=== PATIENT | male | born 1965 | race Two or more races ===

== ENCOUNTER 2017-04-06 18:43 | Inpatient (IN) | payer SELFPAY ==
--- NOTE | 2017-04-06 20:46 | PCM.HP ---
H&P History of Present Illness - General Date of Service: 04/06/17 Admit Problem/Dx: Admission Diagnosis/Problem Admission Diagnosis/Problem Anemia Source of Information: Patient, Family History Limitations: Reports: No Limitations - History of Present Illness Initial Comments - Free Text/Narative: He has had pain in the abd for 3 months and getting worse recently. Pain is 10 /10 sharp shooting and dull in character. He has been unable to hold down solid food just milk and soup. He has had chills and low grade fevers. He has had respiratory distress and weakness for 2-3 weeks. Onset of Symptoms: Reports: Gradual Location: Reports: Abdomen Worsens with: Reports: Movement Abdomen Pain Score (Numeric/FACES): 6 - Related Data Allergies/Adverse Reactions: Allergies Allergy/AdvReac Type Severity Reaction Status Date / Time No Known Allergies Allergy Verified 04/06/17 19:09 Home Medications: Home Meds NK [No Known Home Meds] 04/06/17 [History] Past Medical History - Past Surgical History Other HEENT Surgeries/Procedures: PLATE IN HEAD R/T GRENADE FROM THE WAR GI Surgical History: Reports: Hernia, Abdominal Other Musculoskeletal Surgeries/Procedures:: METAL PLATE IN HEAD R/T TO A GRENADE IN THE WAR, L SHOULDER DISLOCATION WITH SURGICAL REPAIR Social & Family History - Tobacco Use Smoking Status *Q: Unknown Ever Smoked H&P Review of Systems - Review of Systems: Review Of Systems: See Below General: Reports: Fever, Chills, Weakness HEENT: Reports: No Symptoms Pulmonary: Reports: Shortness of Breath Cardiovascular: Reports: Dyspnea on Exertion Gastrointestinal: Reports: Abdominal Pain Genitourinary: Reports: Frequency Musculoskeletal: Reports: No Symptoms Skin: Reports: No Symptoms Psychiatric: Reports: No Symptoms Neurological: Reports: No Symptoms Exam - Exam Exam: See Below - Vital Signs Vital Signs: Last Vital Signs Temp 99.5 F 04/06/17 19:47 Pulse 87 04/06/17 19:47 Resp 15 04/06/17 19:47 BP 148/76 H 04/06/17 19:47 Pulse Ox 98 04/06/17 19:47 Weight: 250 lb - Exam General: Alert, Oriented, 4 HEENT: PERRLA, Hearing Intact, Mucosa Moist & [place], Nares Patent, Normal Nasal Septum, Posterior Pharynx Clear, Conjunctiva Clear, EOMI, EACs Clear, TMs Clear Neck: Supple Lungs: Clear to Auscultation, Normal Respiratory Effort Cardiovascular: Regular Rate, Regular Rhythm GI/Abdominal Exam: Other (Hypoactive bowel sounds.) Back Exam: Normal Inspection, Full Range of Motion, NT Extremities: Pedal Edema Peripheral Pulses: 1+: Radial (L), Radial (R) Neurological: Cranial Nerves Intact, Reflexes Equal Bilateral Neuro Extensive - Mental Status: Alert, Oriented x3, Normal Mood/Affect, Normal Cognition Neuro Extensive - Motor, Sensory, Reflexes: CN II-XII Intact, Normal Gait, Normal Reflexes Psychiatric: Alert - Patient Data Lab Results Last 24 hrs: Laboratory Results - last 24 hr 04/06/17 04/06/17 04/06/17 Range/Units 19:15 19:15 19:26 WBC 8.4 (4.5-11.0) K/uL RBC 2.00 L (4.30-5.90) M/uL Hgb 4.6 L* (12.0-15.0) g/dL Hct 17.3 L (40.0-54.0) % MCV 87 (80-98) fL MCH 23 L (27-31) pg MCHC 27 L (32-36) % Plt Count 81 L (150-400) K/uL Neut % (Auto) 75 H (36-66) % Lymph % (Auto) 11 L (24-44) % [place] % (Auto) 11 H (2-6) % Eos % (Auto) 3 (2-4) % Baso % (Auto) 1 (0-1) % Sodium 138 L (140-148) mmol/L Potassium 3.8 (3.6-5.2) mmol/L Chloride 110 H (100-108) mmol/L Carbon Dioxide 22 (21-32) mmol/L Anion Gap 9.8 (5.0-14.0) mmol/L BUN 10 (7-18) mg/dL Creatinine 0.8 (0.8-1.3) mg/dL Est Cr Clr Drug Dosing 93.96 mL/min Estimated GFR (MDRD) > 60 (>60) Glucose 104 (74-106) mg/dL Calcium 7.2 L (8.5-10.1) mg/dL Iron (65-175) ug/dL TIBC (250-450) ug/dl % Saturation (20-55) % Total Bilirubin 2.2 H (0.2-1.0) mg/dL AST 55 H (15-37) U/L ALT 26 (12-78) U/L Alkaline Phosphatase 128 H (46-116) U/L Total Protein 5.7 L (6.4-8.2) g/dL Albumin 1.7 L (3.4-5.0) g/dL Globulin 4.0 H (2.3-3.5) g/dL Albumin/Globulin Ratio 0.4 L (1.2-2.2) Urine Color Urine Appearance Urine pH (4.5-8.0) Ur Specific [place] (1.008-1.030) Urine Protein (NEGATIVE) mg/dL Urine Glucose (UA) (NEGATIVE) mg/dL Urine Ketones (NEGATIVE) mg/dL Urine Occult Blood (NEGATIVE) Urine Nitrite (NEGAITVE) Urine Bilirubin (NEGATIVE) Urine Urobilinogen (NORMAL) mg/dL Ur Leukocyte Esterase (NEGATIVE) Urine RBC (0-5) Urine WBC (0-5) Ur Epithelial Cells Amorphous Sediment Urine Bacteria Urine Mucus Blood Type O POSITIVE Gel Antibody Screen Negative Crossmatch See Detail 04/06/17 04/06/17 Range/Units 19:46 20:09 WBC (4.5-11.0) K/uL RBC (4.30-5.90) M/uL Hgb (12.0-15.0) g/dL Hct (40.0-54.0) % MCV (80-98) fL MCH (27-31) pg MCHC (32-36) % Plt Count (150-400) K/uL Neut % (Auto) (36-66) % Lymph % (Auto) (24-44) % [place] % (Auto) (2-6) % Eos % (Auto) (2-4) % Baso % (Auto) (0-1) % Sodium (140-148) mmol/L Potassium (3.6-5.2) mmol/L Chloride (100-108) mmol/L Carbon Dioxide (21-32) mmol/L Anion Gap (5.0-14.0) mmol/L BUN (7-18) mg/dL Creatinine (0.8-1.3) mg/dL Est Cr Clr Drug Dosing mL/min Estimated GFR (MDRD) (>60) Glucose (74-106) mg/dL Calcium (8.5-10.1) mg/dL Iron 11 L (65-175) ug/dL TIBC 220 L (250-450) ug/dl % Saturation 5 L (20-55) % Total Bilirubin (0.2-1.0) mg/dL AST (15-37) U/L ALT (12-78) U/L Alkaline Phosphatase (46-116) U/L Total Protein (6.4-8.2) g/dL Albumin (3.4-5.0) g/dL Globulin (2.3-3.5) g/dL Albumin/Globulin Ratio (1.2-2.2) Urine Color Yellow Urine Appearance Clear Urine pH 6.0 (4.5-8.0) Ur Specific [place] 1.015 (1.008-1.030) Urine Protein Negative (NEGATIVE) mg/dL Urine Glucose (UA) Normal (NEGATIVE) mg/dL Urine Ketones Negative (NEGATIVE) mg/dL Urine Occult Blood Negative (NEGATIVE) Urine Nitrite Negative (NEGAITVE) Urine Bilirubin Small (NEGATIVE) Urine Urobilinogen 4 (NORMAL) mg/dL Ur Leukocyte Esterase Negative (NEGATIVE) Urine RBC 0-5 (0-5) Urine WBC 0-5 (0-5) Ur Epithelial Cells Rare Amorphous Sediment Not seen Urine Bacteria Rare Urine Mucus Not seen Blood Type Gel Antibody Screen Crossmatch Result Diagrams: 04/06/17 20:35 04/06/17 19:15 *Q Meaningful Use (ADM) - VTE *Q VTE Criteria *Q: - Stroke *Q Stroke Criteria *Q: - AMI *Q AMI Criteria *Q: Problem List Initiated/Reviewed/Updated: Yes Orders Last 24hrs: Active Orders 24 hr Category Date Time Status Patient Status [ADT] Routine ADT 04/06/17 20:32 Ordered Ambulate [RC] QID Care 04/06/17 20:32 Ordered Bedrest Bathroom Privileges [RC] ASDIRECTED Care 04/06/17 20:32 Ordered Height and Weight [RC] UPON Care 04/06/17 20:32 Ordered Hemoccult [Fecal Occult Blood Collection] [RC] Care 04/06/17 20:07 Active ASDIRECTED Intake and Output [RC] QSHIFT Care 04/06/17 20:34 Ordered May Shower [RC] ASDIRECTED Care 04/06/17 20:32 Ordered Oxygen Therapy [RC] PRN Care 04/06/17 20:32 Ordered Up to Chair [RC] QID Care 04/06/17 20:32 Ordered VTE/DVT Education [RC] Per Unit Routine Care 04/06/17 20:32 Ordered Vital Signs [RC] Q4H Care 04/06/17 20:32 Ordered Full Liquid Diet [DIET] Diet 04/07/17 Breakfast Ordered Abdomen 2V AP Flat Upright [CR] Stat Exams 04/06/17 19:02 Ordered CXR [Chest 2V] [CR] Routine Exams 04/06/17 19:03 Ordered CBC WITH AUTO DIFF [HEME] DAILY Lab 04/06/17 20:45 Ordered FOLIC ACID [CHEM] Stat Lab 04/06/17 20:11 Ordered PATIENT RETYPE [BBK] Stat Lab 04/06/17 19:26 Results RED BLOOD CELLS LP [BBK] Stat Lab 04/06/17 19:26 Results RETICULOCYTE COUNT [HEME] Stat Lab 04/06/17 20:08 Ordered TYPE AND SCREEN [BBK] Stat Lab 04/06/17 19:26 Results VITAMIN B12 [CHEM] Stat Lab 04/06/17 20:10 Ordered Transfuse Red Blood Cells [COMM] Stat Oth 04/06/17 19:26 Ordered Resuscitation Status Routine Resus Stat 04/06/17 20:32 Ordered Assessment/Plan Comment:: Assessment/Plan: #1. Abdominal umbilical hernia. Flat plate of abd and upright reveals no acute pathology. He will need the hernia repaired. Will consult Dr. Hector Norowod when stable for surgery. #2 Anemia: Hb 4.7 will give 2 units of pac cells and check Hb in the morning. Have T & C for 3 units. #3. Obesity: He has gained 60 pound in 2-3 months. Evaluation in progress.
[2017-04-06] MEDS ORDERED: Meperidine 300 MG/30 ML PCA Vial IV PRN (23:10)
[2017-04-06] MEDS ORDERED: Naloxone 0.4 MG/ML SDV IVPUSH PRN (23:19)
[2017-04-06] MEDS: Ondansetron 4 MG/2 ML SDV IVPUSH PRN (23:37)
[2017-04-07] MEDS ORDERED: Sodium Chloride 0.9% 100 ML IV SCH (02:00)
[2017-04-07] MEDS ORDERED: Iopamidol 755 Mg/ML 100 ML Bottle IV SCH (02:00)
--- NOTE | 2017-04-07 03:15 | PCM.PN ---
- General Info Date of Service: 04/07/17 Admission Dx/Problem (Free Text): I was called as he was getting increased pain and had just completed a unit of blood transfusion. His pain became worse and was transferred to the ICU. He has gained weight recently and has had abd. bloating with pain now worse. 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 O2 levels are low and on 4 L of oxygen with 96% pulse ox. Functional Status: Reports: Pain Controlled - Review of Systems General: Reports: Fever, Weakness Pulmonary: Reports: Shortness of Breath Gastrointestinal: Reports: Abdominal Pain, Nausea, Vomiting Genitourinary: Reports: No Symptoms Skin: Reports: No Symptoms Neurological: Reports: No Symptoms - Patient Data Vitals - Most Recent: Last Vital Signs Temp 100.5 F 04/07/17 01:15 Pulse 115 H 04/07/17 00:20 Resp 34 H 04/07/17 02:42 BP 110/56 L 04/07/17 02:25 Pulse Ox 93 L 04/07/17 02:42 Weight - Most Recent: 259 lb I&O - Last 24 Hours: Intake & Output 04/06/17 04/06/17 04/07/17 14:59 22:59 06:59 Intake Total 200 Output Total 300 Balance 200 -300 Lab Results Last 24 Hours: Laboratory Results - last 24 hr 04/06/17 04/06/17 04/07/17 Range/Units 20:35 21:25 01:33 WBC 9.2 (4.5-11.0) K/uL RBC 2.02 L (4.30-5.90) M/uL Hgb 5.0 L* (12.0-15.0) g/dL Hct 17.3 L (40.0-54.0) % MCV 86 (80-98) fL MCH 25 L (27-31) pg MCHC 29 L (32-36) % Plt Count 94 L (150-400) K/uL Neut % (Auto) 74 H (36-66) % Lymph % (Auto) 12 L (24-44) % [place] % (Auto) 11 H (2-6) % Eos % (Auto) 3 (2-4) % Baso % (Auto) 0 (0-1) % Puncture Site Rt brachial ABG pH 7.440 (7.350-7.450) ABG pCO2 25.7 L (35.0-42.0) mmHg ABG pO2 67.9 L (75.0-100.0) mmHg ABG HCO3 17.2 L (22.0-26.0) mmol/L ABG Total CO2 16.7 L (23.0-27.0) mmol/L ABG O2 Saturation 93.8 L (95.0-98.0) % ABG O2 Content 7.8 L (15.0-23.0) %vol ABG Base Excess -6.1 mm/L ABG Hemoglobin 6.0 L (13.5-18.0) g/dL ABG Oxyhemoglobin 91.8 % ABG Carboxyhemoglobin 1.3 (0.0-1.6) % ABG Methemoglobin 0.8 % Luciano Test Passed O2 Delivery Device Nasal cannula TSH, Ultra Sensitive 3.406 (0.358-3.740) uIU/mL Brennen Results Last 24 Hours: Microbiology 04/06/17 23:32 Occult Blood - Final Stool / Feces - Stool, Liquid Med Orders - Current: Current Medications Sodium Chloride (Normal Saline) 100 mls @ 4 mls/sec IV ASDIRECTED RONALD Last Admin: 04/07/17 02:24 Dose: 4 mls/sec Influenza Virus Vaccine (Fluzone Quad [id number]) 60 mcg IM .ONCE ONE Stop: 04/07/17 10:01 Iopamidol (Isovue-370 (76%)) 100 ml IV . DIRECTED [facility] Last Admin: 04/07/17 02:23 Dose: 100 ml Meperidine HCl (Demerol Environmental Health Nurse 300 Mg In 30 Ml) 300 mg IV ASDIRECTED PRN; Protocol PRN Reason: Pain Last Admin: 04/06/17 23:40 Dose: 300 mg Naloxone HCl (Narcan) 0.4 mg IVPUSH Q2M PRN PRN Reason: Respiratory Distress Ondansetron HCl (Zofran Odt) 4 mg PO Q4H PRN PRN Reason: Nausea/Vomiting Ondansetron HCl (Zofran) 4 mg IVPUSH Q4H PRN PRN Reason: Nausea/Vomiting Last Admin: 04/06/17 23:37 Dose: 4 mg Discontinued Medications Influenza Virus Vaccine (Pharmacy To Dose - Influenza Vaccine) 1 each IM ONETIME ONE Stop: 04/06/17 22:07 - Exam General: Alert, Oriented Neck: Supple Lungs: Clear to Auscultation, Normal Respiratory Effort Cardiovascular: Regular Rate, Regular Rhythm GI/Abdominal Exam: Distended, Guarding, Tender, Abnormal Bowel Sounds Extremities: Pedal Edema Peripheral Pulses: 1+: Radial (L), Radial (R) - Problem List Review Problem List Initiated/Reviewed/Updated: Yes - My Orders Last 24 Hours: My Active Orders 04/06/17 21:25 CEA [REF] Routine 04/06/17 23:10 Meperidine [Demerol [employer]OWPLACE MANAGER 300 MG in 30 ML] 300 mg IV ASDIRECTED PRN 04/06/17 23:14 Ondansetron [Zofran ODT] 4 mg PO Q4H PRN Ondansetron [Zofran] 4 mg IVPUSH Q4H PRN 04/06/17 23:19 Communication Order [RC] STAT Notify Provider [RC] PRN SHOWPLACE MANAGER Record [RC] Q12H Pulse Oximetry [RC] CONTINUOUS Naloxone [Narcan] 0.4 mg IVPUSH Q2M PRN Medication Discontinuation Instructions [OM.PC] Stat 04/07/17 00:25 Transfer Patient (Change bed) [ADT] Routine 04/07/17 00:37 CULTURE URINE [RM] Routine UA W/MICROSCOPIC [URIN] Routine Blood Culture x2 Reflex Set [OM.PC] Urgent 04/07/17 00:50 CULTURE BLOOD [BC] Urgent 04/07/17 01:00 CULTURE BLOOD [BC] Urgent 04/07/17 01:30 Ang Chest w wo Cont [MR] Routine 04/07/17 01:32 Abdomen Pelvis w Cont [CT] Stat 04/07/17 01:35 TRANSFUSION REACTION [BBK] Routine 04/07/17 01:40 Ang Chest [CT] Stat 04/07/17 02:00 Iopamidol [Isovue-370 (76%)] 100 ml IV . DIRECTED Sodium Chloride 0.9% [Normal Saline] 100 ml IV ASDIRECTED 04/07/17 05:00 CBC WITH AUTO DIFF [HEME] Routine 04/07/17 10:00 FLU Vacc [id number] [id number] UP/PF [Fluzone Quad [id number]] 60 mcg IM .ONCE ONE - Plan Plan:: Assessment/Plan: #1. Cirrhosis of the liver. Flat plate of abd and upright reveals no acute pathology this was read by the radiologist. Ct of the abd showed liver cirrhosis. Now he states he has been drinking heavy last drink 3 weeks ago. Initially he said he did not drink. Liver enzymes show evidence of liver dysfunction with AST>ALT >2:1 with slight elevation of Alk P Tase. Prognosis is not good. The abd hernia is fluid pushing the navel and is not a concern. Would consider doing a percentesis. #2 Anemia: Hb 4.7 will give 2 units of pac cells and check Hb in the morning. Have T & C for 3 units. #3. Hypoxemia: CT of the lung showed no evidence of a PE. #4. Obesity: He has gained 60 pound in 2-3 months. 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
[2017-04-07] MEDS ORDERED: Furosemide 20 MG/2 ML VIAL IVPUSH ONE (04:18)
[2017-04-07] MEDS ORDERED: FLU Vacc QS 2017-18 (36mos UP)/PF 60 MCG/0.5 ML Syringe IM ONE (10:00)
[2017-04-07] MEDS: Levofloxacin/Dextrose 5%-Water 500 MG in Premix Bag 1 BAG IV SCH (10:41)
[2017-04-07] MEDS: Meperidine 300 MG/30 ML PCA Vial IV PRN (14:36)
--- NOTE | 2017-04-07 15:01 | PCM.OPNOTE ---
- General Post-Op/Procedure Note Date of Surgery/Procedure: 04/07/17 Operative Procedure(s): abd. pericentesis Pre Op Diagnosis: Liver failure Post-Op Diagnosis: 4.5 liters removed Primary Surgeon: Harry Man Sr Condition: Fair Free Text/Narrative:: Intake & Output 04/06/17 04/07/17 04/07/17 22:59 06:59 14:59 Intake Total 200 390 0 Output Total 300 Balance 200 90 0 Standard sterile technique used and used a thorentesis kit. removed 4.5 liters of yellow fluid. difficult to remove had to use suction then used a syringe which came very slow. Spent 2 hours in removing the fluid. Fluid sent for cytology and cell count.
--- NOTE | 2017-04-07 15:06 | PCM.PN ---
- General Info Date of Service: 04/07/17 Functional Status: Reports: Pain Controlled - Review of Systems General: Reports: Weakness, Fatigue HEENT: Reports: No Symptoms Pulmonary: Reports: Shortness of Breath, Other (on 4 liters of O2.) Gastrointestinal: Reports: Abdominal Pain Genitourinary: Reports: No Symptoms Musculoskeletal: Reports: No Symptoms Skin: Reports: No Symptoms Neurological: Reports: No Symptoms Psychiatric: Reports: No Symptoms - Patient Data Vitals - Most Recent: Last Vital Signs Temp 98.0 F 04/07/17 13:00 Pulse 115 H 04/07/17 00:20 Resp 25 H 04/07/17 13:00 BP 104/77 04/07/17 13:00 Pulse Ox 90 L 04/07/17 13:00 Weight - Most Recent: 259 lb I&O - Last 24 Hours: Intake & Output 04/07/17 04/07/17 04/07/17 06:59 14:59 22:59 Intake Total 390 0 Output Total 300 Balance 90 0 Lab Results Last 24 Hours: Laboratory Results - last 24 hr 04/06/17 04/06/17 04/07/17 Range/Units 20:35 21:25 01:33 WBC 9.2 (4.5-11.0) K/uL RBC 2.02 L (4.30-5.90) M/uL Hgb 5.0 L* (12.0-15.0) g/dL Hct 17.3 L (40.0-54.0) % MCV 86 (80-98) fL MCH 25 L (27-31) pg MCHC 29 L (32-36) % Plt Count 94 L (150-400) K/uL Neut % (Auto) 74 H (36-66) % Lymph % (Auto) 12 L (24-44) % [place] % (Auto) 11 H (2-6) % Eos % (Auto) 3 (2-4) % Baso % (Auto) 0 (0-1) % PT (9.5-12.0) sec INR (0.80-1.20) Puncture Site Rt brachial ABG pH 7.440 (7.350-7.450) ABG pCO2 25.7 L (35.0-42.0) mmHg ABG pO2 67.9 L (75.0-100.0) mmHg ABG HCO3 17.2 L (22.0-26.0) mmol/L ABG Total CO2 16.7 L (23.0-27.0) mmol/L ABG O2 Saturation 93.8 L (95.0-98.0) % ABG O2 Content 7.8 L (15.0-23.0) %vol ABG Base Excess -6.1 mm/L ABG Hemoglobin 6.0 L (13.5-18.0) g/dL ABG Oxyhemoglobin 91.8 % ABG Carboxyhemoglobin 1.3 (0.0-1.6) % ABG Methemoglobin 0.8 % Luciano Test Passed O2 Delivery Device Nasal cannula Ammonia (11-32) mmol/L Creatine Kinase (39-308) U/L CK-MB (CK-2) (0-3.6) mg/mL Troponin I (0.000-0.056) ng/mL Lipase (73-393) U/L TSH, Ultra Sensitive 3.406 (0.358-3.740) uIU/mL Urine Color Urine Appearance Urine pH (4.5-8.0) Ur Specific [place] (1.008-1.030) Urine Protein (NEGATIVE) mg/dL Urine Glucose (UA) (NEGATIVE) mg/dL Urine Ketones (NEGATIVE) mg/dL Urine Occult Blood (NEGATIVE) Urine Nitrite (NEGAITVE) Urine Bilirubin (NEGATIVE) Urine Urobilinogen (NORMAL) mg/dL Ur Leukocyte Esterase (NEGATIVE) Urine RBC (0-5) Urine WBC (0-5) Ur Epithelial Cells Amorphous Sediment Urine Bacteria Urine Mucus Urine Other Tx Rx Implicated Unit 1 Unit 1 Component Urine Blood Reaction Clerical Check Pre-Trans Blood Type Pre-Trans Vis Hemolysis Pre-Trans Icterus Pre-Trans EN IgG Post-Trans Blood Type Post-Tx Visible Hemolys Post-Trans Icterus Post-Trans EN IgG 04/07/17 04/07/17 04/07/17 Range/Units 01:35 04:38 05:00 WBC 14.0 H (4.5-11.0) K/uL RBC 3.00 L (4.30-5.90) M/uL Hgb 7.8 L D (12.0-15.0) g/dL Hct 25.9 L (40.0-54.0) % MCV 86 (80-98) fL MCH 26 L (27-31) pg MCHC 30 L (32-36) % Plt Count 125 L (150-400) K/uL Neut % (Auto) 95 H (36-66) % Lymph % (Auto) 3 L (24-44) % [place] % (Auto) 2 (2-6) % Eos % (Auto) 0 L (2-4) % Baso % (Auto) 0 (0-1) % PT (9.5-12.0) sec INR (0.80-1.20) Puncture Site ABG pH (7.350-7.450) ABG pCO2 (35.0-42.0) mmHg ABG pO2 (75.0-100.0) mmHg ABG HCO3 (22.0-26.0) mmol/L ABG Total CO2 (23.0-27.0) mmol/L ABG O2 Saturation (95.0-98.0) % ABG O2 Content (15.0-23.0) %vol ABG Base Excess mm/L ABG Hemoglobin (13.5-18.0) g/dL ABG Oxyhemoglobin % ABG Carboxyhemoglobin (0.0-1.6) % ABG Methemoglobin % Luciano Test O2 Delivery Device Ammonia (11-32) mmol/L Creatine Kinase (39-308) U/L CK-MB (CK-2) (0-3.6) mg/mL Troponin I (0.000-0.056) ng/mL Lipase (73-393) U/L TSH, Ultra Sensitive (0.358-3.740) uIU/mL Urine Color [place] Urine Appearance Cloudy Urine pH 5.0 (4.5-8.0) Ur Specific [place] 1.010 (1.008-1.030) Urine Protein 30 H (NEGATIVE) mg/dL Urine Glucose (UA) Normal (NEGATIVE) mg/dL Urine Ketones Negative (NEGATIVE) mg/dL Urine Occult Blood Trace (NEGATIVE) Urine Nitrite Positive H (NEGAITVE) Urine Bilirubin Small (NEGATIVE) Urine Urobilinogen 4 (NORMAL) mg/dL Ur Leukocyte Esterase Small (NEGATIVE) Urine RBC 0-5 (0-5) Urine WBC 10-20 H (0-5) Ur Epithelial Cells Many Amorphous Sediment Moderate Urine Bacteria Moderate Urine Mucus Few Urine Other See note Tx Rx Implicated Unit 1 [id number] Unit 1 Component O-pos Urine Blood Trace Reaction Clerical Check Acceptable Pre-Trans Blood Type O positive Pre-Trans Vis Hemolysis Negative Pre-Trans Icterus 2+ Pre-Trans EN IgG Negative Post-Trans Blood Type O positive Post-Tx Visible Hemolys Negative Post-Trans Icterus 2+ Post-Trans EN IgG Negative 04/07/17 04/07/17 04/07/17 Range/Units 07:30 09:48 09:48 WBC (4.5-11.0) K/uL RBC (4.30-5.90) M/uL Hgb (12.0-15.0) g/dL Hct (40.0-54.0) % MCV (80-98) fL MCH (27-31) pg MCHC (32-36) % Plt Count (150-400) K/uL Neut % (Auto) (36-66) % Lymph % (Auto) (24-44) % [place] % (Auto) (2-6) % Eos % (Auto) (2-4) % Baso % (Auto) (0-1) % PT 14.7 H (9.5-12.0) sec INR 1.36 H (0.80-1.20) Puncture Site ABG pH (7.350-7.450) ABG pCO2 (35.0-42.0) mmHg ABG pO2 (75.0-100.0) mmHg ABG HCO3 (22.0-26.0) mmol/L ABG Total CO2 (23.0-27.0) mmol/L ABG O2 Saturation (95.0-98.0) % ABG O2 Content (15.0-23.0) %vol ABG Base Excess mm/L ABG Hemoglobin (13.5-18.0) g/dL ABG Oxyhemoglobin % ABG Carboxyhemoglobin (0.0-1.6) % ABG Methemoglobin % Luciano Test O2 Delivery Device Ammonia 48 H (11-32) mmol/L Creatine Kinase 135 (39-308) U/L CK-MB (CK-2) 3.5 (0-3.6) mg/mL Troponin I 0.051 (0.000-0.056) ng/mL Lipase (73-393) U/L TSH, Ultra Sensitive (0.358-3.740) uIU/mL Urine Color Urine Appearance Urine pH (4.5-8.0) Ur Specific [place] (1.008-1.030) Urine Protein (NEGATIVE) mg/dL Urine Glucose (UA) (NEGATIVE) mg/dL Urine Ketones (NEGATIVE) mg/dL Urine Occult Blood (NEGATIVE) Urine Nitrite (NEGAITVE) Urine Bilirubin (NEGATIVE) Urine Urobilinogen (NORMAL) mg/dL Ur Leukocyte Esterase (NEGATIVE) Urine RBC (0-5) Urine WBC (0-5) Ur Epithelial Cells Amorphous Sediment Urine Bacteria Urine Mucus Urine Other Tx Rx Implicated Unit 1 Unit 1 Component Urine Blood Reaction Clerical Check Pre-Trans Blood Type Pre-Trans Vis Hemolysis Pre-Trans Icterus Pre-Trans EN IgG Post-Trans Blood Type Post-Tx Visible Hemolys Post-Trans Icterus Post-Trans EN IgG 04/07/17 Range/Units 12:36 WBC (4.5-11.0) K/uL RBC (4.30-5.90) M/uL Hgb (12.0-15.0) g/dL Hct (40.0-54.0) % MCV (80-98) fL MCH (27-31) pg MCHC (32-36) % Plt Count (150-400) K/uL Neut % (Auto) (36-66) % Lymph % (Auto) (24-44) % [place] % (Auto) (2-6) % Eos % (Auto) (2-4) % Baso % (Auto) (0-1) % PT (9.5-12.0) sec INR (0.80-1.20) Puncture Site ABG pH (7.350-7.450) ABG pCO2 (35.0-42.0) mmHg ABG pO2 (75.0-100.0) mmHg ABG HCO3 (22.0-26.0) mmol/L ABG Total CO2 (23.0-27.0) mmol/L ABG O2 Saturation (95.0-98.0) % ABG O2 Content (15.0-23.0) %vol ABG Base Excess mm/L ABG Hemoglobin (13.5-18.0) g/dL ABG Oxyhemoglobin % ABG Carboxyhemoglobin (0.0-1.6) % ABG Methemoglobin % Luciano Test O2 Delivery Device Ammonia (11-32) mmol/L Creatine Kinase (39-308) U/L CK-MB (CK-2) (0-3.6) mg/mL Troponin I (0.000-0.056) ng/mL Lipase 315 (73-393) U/L TSH, Ultra Sensitive (0.358-3.740) uIU/mL Urine Color Urine Appearance Urine pH (4.5-8.0) Ur Specific [place] (1.008-1.030) Urine Protein (NEGATIVE) mg/dL Urine Glucose (UA) (NEGATIVE) mg/dL Urine Ketones (NEGATIVE) mg/dL Urine Occult Blood (NEGATIVE) Urine Nitrite (NEGAITVE) Urine Bilirubin (NEGATIVE) Urine Urobilinogen (NORMAL) mg/dL Ur Leukocyte Esterase (NEGATIVE) Urine RBC (0-5) Urine WBC (0-5) Ur Epithelial Cells Amorphous Sediment Urine Bacteria Urine Mucus Urine Other Tx Rx Implicated Unit 1 Unit 1 Component Urine Blood Reaction Clerical Check Pre-Trans Blood Type Pre-Trans Vis Hemolysis Pre-Trans Icterus Pre-Trans EN IgG Post-Trans Blood Type Post-Tx Visible Hemolys Post-Trans Icterus Post-Trans EN IgG Brennen Results Last 24 Hours: Microbiology 04/06/17 23:32 Occult Blood - Final Stool / Feces - Stool, Liquid Med Orders - Current: Current Medications Levofloxacin/Dextrose 500 mg/ (Premix) 100 mls @ 100 mls/hr IV Q24H [facility] Last Admin: 04/07/17 10:41 Dose: 100 mls/hr Albumin Human (Albumin 25%) 25 gm in 100 mls @ 25 mls/hr IV Q24H [facility] Stop: 04/09/17 17:59 Last Admin: 04/07/17 14:36 Dose: 25 mls/hr Albumin Human (Albumin 25%) 25 gm in 100 mls @ 25 mls/hr IV Q24H [facility] Stop: 04/09/17 21:59 Influenza Virus Vaccine (Fluzone Quad 9825-0892) 60 mcg IM .ONCE ONE Stop: 04/09/17 10:01 Meperidine HCl (Demerol It Applications Manager 300 Mg In 30 Ml) 0 mg IV ASDIRECTED PRN; Protocol PRN Reason: Pain Last Admin: 04/07/17 14:36 Dose: 300 mg Naloxone HCl (Narcan) 0.4 mg IVPUSH Q2M PRN PRN Reason: Respiratory Distress Ondansetron HCl (Zofran Odt) 4 mg PO Q4H PRN PRN Reason: Nausea/Vomiting Ondansetron HCl (Zofran) 4 mg IVPUSH Q4H PRN PRN Reason: Nausea/Vomiting Last Admin: 04/06/17 23:37 Dose: 4 mg Discontinued Medications Furosemide (Lasix) 20 mg IVPUSH ONETIME ONE Stop: 04/07/17 04:19 Last Admin: 04/07/17 04:30 Dose: 20 mg Sodium Chloride (Normal Saline) 100 mls @ 4 mls/sec IV ASDIRECTED [facility] Last Admin: 04/07/17 02:24 Dose: 4 mls/sec Influenza Virus Vaccine (Pharmacy To Dose - Influenza Vaccine) 1 each IM ONETIME ONE Stop: 04/06/17 22:07 Iopamidol (Isovue-370 (76%)) 100 ml IV . DIRECTED [facility] Last Admin: 04/07/17 02:23 Dose: 100 ml Meperidine HCl (Demerol It Applications Manager 300 Mg In 30 Ml) 300 mg IV ASDIRECTED PRN; Protocol PRN Reason: Pain Last Admin: 04/06/17 23:40 Dose: 300 mg - Exam General: Alert, Oriented HEENT: Pupils Equal Neck: Supple Lungs: Clear to Auscultation, Normal Respiratory Effort Cardiovascular: Regular Rate, Regular Rhythm GI/Abdominal Exam: Distended, Tender Extremities: Pedal Edema Peripheral Pulses: 1+: Radial (L), Radial (R) Skin: Warm, Dry, Intact - Problem List Review Problem List Initiated/Reviewed/Updated: Yes - My Orders Last 24 Hours: My Active Orders 04/06/17 21:25 CEA [REF] Routine 04/06/17 23:14 Ondansetron [Zofran ODT] 4 mg PO Q4H PRN Ondansetron [Zofran] 4 mg IVPUSH Q4H PRN 04/06/17 23:19 Communication Order [RC] STAT Notify Provider [RC] PRN WOOD CRAFTER Record [RC] Q12H Pulse Oximetry [RC] CONTINUOUS Naloxone [Narcan] 0.4 mg IVPUSH Q2M PRN Medication Discontinuation Instructions [OM.PC] Stat 04/07/17 00:25 Transfer Patient (Change bed) [ADT] Routine 04/07/17 00:37 Blood Culture x2 Reflex Set [OM.PC] Urgent 04/07/17 00:50 CULTURE BLOOD [BC] Urgent 04/07/17 01:00 CULTURE BLOOD [BC] Urgent 04/07/17 01:30 Ang Chest w wo Cont [MR] Routine 04/07/17 01:32 Abdomen Pelvis w Cont [CT] Stat 04/07/17 01:35 TRANSFUSION REACTION [BBK] Routine 04/07/17 01:40 Ang Chest [CT] Stat 04/07/17 04:18 Urinary Catheter Assessment [RC] ASDIRECTED 04/07/17 04:30 Urinary Catheter Insertion [Insert Urinary Catheter] [OM.PC] Q24H 04/07/17 04:45 CULTURE URINE [RM] Routine 04/07/17 07:08 Meperidine [Demerol WOOD CRAFTER 300 MG in 30 ML] 0 mg IV ASDIRECTED PRN 04/07/17 09:02 EKG 12 Lead [EK] Routine 04/07/17 10:00 Levofloxacin/Dextrose 5%-Water [Levaquin in D5W 500 MG/100 ML] 500 mg Premix Bag 1 bag IV Q24H 04/07/17 12:23 US Guidance Paracentesis NC [US] Routine 04/07/17 14:00 Albumin Human [Albumin 25%] 25 gm in 100 ml IV Q24H 04/07/17 18:00 Albumin Human [Albumin 25%] 25 gm in 100 ml IV Q24H 04/08/17 05:11 BILIRUBIN DIRECT [CHEM] Routine BILIRUBIN TOTAL [CHEM] Routine CBC WITH AUTO DIFF [HEME] Routine COMPREHENSIVE METABOLIC PN,CMP [CHEM] Routine 04/09/17 10:00 FLU Vacc [id number] 36Mos UP/PF [Fluzone Quad 5817-1825] 60 mcg IM .ONCE ONE - Plan Plan:: Assessment/Plan: #1. Cirrhosis of the liver. Flat plate of abd and upright reveals no acute pathology this was read by the radiologist. Ct of the abd showed liver cirrhosis. Now he states he has been drinking heavy last drink 3 weeks ago. Initially he said he did not drink. Liver enzymes show evidence of liver dysfunction with AST>ALT >2:1 with slight elevation of Alk P Tase. Prognosis is not good. The abd hernia is fluid pushing the navel and is not a concern. Would consider doing a percentesis. Removed 4.5 L of fluid after US marking. The right lat. approach used per ultra-sound guidance. Will talk with yaneth in the morning as I feel he will need a port for drainage of the fluid from the abd. Albumin will be given 50 grams for 3 days id he remains in the hospital. #2 Anemia: Hb 7.8 will giving 1 units of pac cells now and check Hb in the morning. #3. Hypoxemia: CT of the lung showed no evidence of a PE. #4. Obesity: He has gained 60 pound in 2-3 months. 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
[2017-04-08] MEDS ORDERED: Sodium Chloride 0.9% 1,000 ML IV SCH (03:45)
[2017-04-08] MEDS: Meperidine 300 MG/30 ML PCA Vial IV PRN (04:58)
[2017-04-08] MEDS: Ondansetron 4 MG Tab.DIS PO PRN ×2 (08:45→14:54)
[2017-04-08] MEDS: Levofloxacin/Dextrose 5%-Water 500 MG in Premix Bag 1 BAG IV SCH (10:45)
[2017-04-08] MEDS: Ondansetron 4 MG/2 ML SDV IVPUSH PRN (13:09)
[2017-04-08] MEDS ORDERED: Morphine 10 MG/0.5 ML Oral Syringe PO PRN (15:47)
[2017-04-08] MEDS ORDERED: LORazepam ORAL Concentrate 1MG/0.5ML U/D PO PRN (15:55)
--- NOTE | 2017-04-08 17:03 | PCM.PN ---
- General Info Date of Service: 04/08/17 Subjective Update: He has not make any improvement in fact he is worse and now losing orientation to person place and time. He requested last night to be a no code status and I feel this as an appropriate decision. Order has been signed. He knows he is terminal as well as his (girl friend) is aware he is terminal. Functional Status: Reports: Pain Controlled - Review of Systems General: Reports: Weakness, Appetite Pulmonary: Reports: Shortness of Breath Cardiovascular: Reports: Dyspnea on Exertion Gastrointestinal: Reports: Abdominal Pain, Nausea, Vomiting Genitourinary: Reports: No Symptoms Musculoskeletal: Reports: No Symptoms Skin: Reports: Jaundice Neurological: Reports: Confusion, Weakness Psychiatric: Reports: Confusion, Hallucinations - Patient Data Vitals - Most Recent: Last Vital Signs Temp 97.1 F 04/08/17 13:03 Pulse 128 H 04/08/17 13:03 Resp 26 H 04/08/17 13:03 BP 91/45 L 04/08/17 13:03 Pulse Ox 88 L 04/08/17 13:03 Weight - Most Recent: 258 lb 15.985 oz I&O - Last 24 Hours: Intake & Output 04/08/17 04/08/17 04/08/17 06:59 14:59 22:59 Intake Total 1565 800 Output Total 100 Balance 1465 800 Lab Results Last 24 Hours: Laboratory Results - last 24 hr 04/08/17 04/08/17 04/08/17 Range/Units 04:52 04:52 04:52 WBC 27.8 H (4.5-11.0) K/uL RBC 3.54 L (4.30-5.90) M/uL Hgb 9.1 L (12.0-15.0) g/dL Hct 30.7 L (40.0-54.0) % MCV 87 (80-98) fL MCH 26 L (27-31) pg MCHC 30 L (32-36) % Plt Count 180 (150-400) K/uL Add Manual Diff Yes Neutrophils % (Manual) 58 (36-66) % Band Neutrophils % 26 H (5-11) % Lymphocytes % (Manual) 7 L (24-44) % Monocytes % (Manual) 4 (2-6) % Metamyelocytes % 5 % Anisocytosis Marked H Sodium 133 L (140-148) mmol/L Potassium 5.3 H (3.6-5.2) mmol/L Chloride 102 (100-108) mmol/L Carbon Dioxide 15 L (21-32) mmol/L Anion Gap 21.3 H (5.0-14.0) mmol/L BUN 28 H D (7-18) mg/dL Creatinine 3.1 H D (0.8-1.3) mg/dL Est Cr Clr Drug Dosing 24.25 mL/min Estimated GFR (MDRD) 21 L (>60) Glucose 82 (74-106) mg/dL Calcium 7.1 L (8.5-10.1) mg/dL Magnesium 1.4 L (1.8-2.4) mg/dL Total Bilirubin 7.0 H D (0.2-1.0) mg/dL Direct Bilirubin 4.99 H (0.0-0.2) mg/dL AST 43 H (15-37) U/L ALT 18 (12-78) U/L Alkaline Phosphatase 67 (46-116) U/L Total Protein 5.2 L (6.4-8.2) g/dL Albumin 2.1 L (3.4-5.0) g/dL Globulin 3.1 (2.3-3.5) g/dL Albumin/Globulin Ratio 0.7 L (1.2-2.2) Brennen Results Last 24 Hours: Microbiology 04/07/17 04:45 Urine Culture - Preliminary Urine, Catheterized NO GROWTH AFTER 1 DAY 04/07/17 01:00 Aerobic Blood Culture - Preliminary Blood - Arm, Right NO GROWTH AFTER 1 DAY Anaerobic Blood Culture - Preliminary NO GROWTH AFTER 1 DAY 04/07/17 00:50 Aerobic Blood Culture - Preliminary Blood - Arm, Left NO GROWTH AFTER 1 DAY Anaerobic Blood Culture - Preliminary NO GROWTH AFTER 1 DAY 04/07/17 15:46 Gram Stain - Final Paracentesis Fluid Med Orders - Current: Current Medications Lorazepam (Ativan Oral Concentrate 1mg/0.5 Ml U/D) 0.5 - 1 mg PO Q2H PRN PRN Reason: Anxiety Last Admin: 04/08/17 16:17 Dose: 1 mg Morphine Sulfate (Morphine 10 Mg/0.5 Ml Oral Syringe) 10 mg PO Q2H PRN PRN Reason: Pain Last Admin: 04/08/17 16:11 Dose: 10 mg Ondansetron HCl (Zofran Odt) 4 mg PO Q4H PRN PRN Reason: Nausea/Vomiting Last Admin: 04/08/17 14:54 Dose: 4 mg Discontinued Medications Furosemide (Lasix) 20 mg IVPUSH ONETIME ONE Stop: 04/07/17 04:19 Last Admin: 04/07/17 04:30 Dose: 20 mg Sodium Chloride (Normal Saline) 100 mls @ 4 mls/sec IV ASDIRECTED [facility] Last Admin: 04/07/17 02:24 Dose: 4 mls/sec Levofloxacin/Dextrose 500 mg/ (Premix) 100 mls @ 100 mls/hr IV Q24H [facility] Last Admin: 04/08/17 10:45 Dose: 100 mls/hr Albumin Human (Albumin 25%) 25 gm in 100 mls @ 25 mls/hr IV Q24H [facility] Stop: 04/09/17 17:59 Last Admin: 04/07/17 14:36 Dose: 25 mls/hr Albumin Human (Albumin 25%) 25 gm in 100 mls @ 25 mls/hr IV Q24H [facility] Stop: 04/09/17 21:59 Last Admin: 04/07/17 19:02 Dose: 25 mls/hr Sodium Chloride (Normal Saline) 1,000 mls @ 125 mls/hr IV ASDIRECTED [facility] Influenza Virus Vaccine (Pharmacy To Dose - Influenza Vaccine) 1 each IM ONETIME ONE Stop: 04/06/17 22:07 Influenza Virus Vaccine (Fluzone Quad 6746-3421) 60 mcg IM .ONCE ONE Stop: 04/09/17 10:01 Iopamidol (Isovue-370 (76%)) 100 ml IV . DIRECTED [facility] Last Admin: 04/07/17 02:23 Dose: 100 ml Meperidine HCl (Demerol Embroiderer Hand 300 Mg In 30 Ml) 300 mg IV ASDIRECTED PRN; Protocol PRN Reason: Pain Last Admin: 04/06/17 23:40 Dose: 300 mg Meperidine HCl (Demerol Embroiderer Hand 300 Mg In 30 Ml) 0 mg IV ASDIRECTED PRN; Protocol PRN Reason: Pain Last Admin: 04/08/17 04:58 Dose: 300 mg Naloxone HCl (Narcan) 0.4 mg IVPUSH Q2M PRN PRN Reason: Respiratory Distress Ondansetron HCl (Zofran) 4 mg IVPUSH Q4H PRN PRN Reason: Nausea/Vomiting Last Admin: 04/06/17 23:37 Dose: 4 mg - Exam General: Cooperative, Moderate Distress, Lethargic HEENT: Pupils Equal Neck: Supple Lungs: Clear to Auscultation Cardiovascular: Regular Rate GI/Abdominal Exam: Distended, Guarding, Tender, Abnormal Bowel Sounds Extremities: Pedal Edema Peripheral Pulses: 1+: Radial (L), Radial (R) Psy/Mental Status: Hallucinations - Problem List Review Problem List Initiated/Reviewed/Updated: Yes - My Orders Last 24 Hours: My Active Orders 04/07/17 16:09 Resuscitation Status Routine 04/08/17 15:39 Peripheral IV Discontinue [OM.PC] Routine 04/08/17 15:47 Morphine [Morphine 10 MG/0.5 ML Oral Syringe] 10 mg PO Q2H PRN 04/08/17 15:55 LORazepam [Ativan ORAL Concentrate 1MG/0.5 ML U/D] 0.5 - 1 mg PO Q2H PRN - Plan Plan:: Assessment/Plan: #1. Cirrhosis of the liver. His condition is terminal and expect no recovery. He is a no code. They refused Hospice care. #2 Anemia: Will not be followed as he is a DNR. #3. Hypoxemia: O2 as needed.
[2017-04-08] MEDS: LORazepam ORAL Concentrate 1MG/0.5ML U/D PO PRN ×2 (18:11→21:30)
[2017-04-08] MEDS: Morphine 10 MG/0.5 ML Oral Syringe PO PRN ×2 (18:11→19:28)
[2017-04-08] MEDS ORDERED: Atropine Sulfate Ophth 2 ML Drops SL PRN (21:00)
[2017-04-09] MEDS ORDERED: FLU Vacc QS 2017-18 (36mos UP)/PF 60 MCG/0.5 ML Syringe IM ONE (10:00)
--- NOTE | 2017-04-19 09:39 | PCM.DCSUM1 ---
Discharge Summary - Hospital Course Brief History: He came in initially stating he had gained 60 pounds in the last month and had a hernia at the navel he needed to have repaired. He stated when questioned that he does not drink alc. - Discharge Data Discharge Date: 04/08/17 Discharge Disposition: 20 Condition: Good - Patient Summary/Data Operative Procedure(s) Performed: abd. pericentesis Hospital Course: x-rays done in the ER did not show any obstruction as he had been vomiting. I admitted him to the 2nd floor. within 3 hrs he became short of breath and O2 levels fell. He was transferred to the ICU and on 4 liters of O2 to maintain O2 levels in the 90's. I came as the respiratory problem was sudden after admission and his abd. was distended and CT of the lungs did not show a PE. The CT of the abd. showed cirrhosis of the liver. Labs were repeated and the liver enzymes were elevated and bilirubin went up to 7. I drained out 4.5 liters of fluid and the fluid returned in the abd. immediately. He requested a no code protocol. He was transferred to the 2nd floor and . - Discharge Plan Home Medications: Home Meds NK [No Known Home Meds] 04/06/17 [History] Forms: ED Department Discharge Referrals: Harry Man Sr, MD [Primary Care Provider] - - Patient Data Vitals - Most Recent: Last Vital Signs Temp 97.1 F 04/08/17 13:03 Pulse 128 H 04/08/17 13:03 Resp 26 H 04/08/17 13:03 BP 91/45 L 04/08/17 13:03 Pulse Ox 88 L 04/08/17 13:03 Weight - Most Recent: 258 lb 15.985 oz Med Orders - Current: Current Medications Discontinued Medications Atropine Sulfate (Atropine 1%) 0 ml SL ASDIRECTED PRN PRN Reason: SECRETIONS Last Admin: 04/08/17 21:30 Dose: 2 drop Furosemide (Lasix) 20 mg IVPUSH ONETIME ONE Stop: 04/07/17 04:19 Last Admin: 04/07/17 04:30 Dose: 20 mg Sodium Chloride (Normal Saline) 100 mls @ 4 mls/sec IV ASDIRECTED [facility] Last Admin: 04/07/17 02:24 Dose: 4 mls/sec Levofloxacin/Dextrose 500 mg/ (Premix) 100 mls @ 100 mls/hr IV Q24H [facility] Last Admin: 04/08/17 10:45 Dose: 100 mls/hr Albumin Human (Albumin 25%) 25 gm in 100 mls @ 25 mls/hr IV Q24H [facility] Stop: 04/09/17 17:59 Last Admin: 04/08/17 18:26 Dose: Not Given Albumin Human (Albumin 25%) 25 gm in 100 mls @ 25 mls/hr IV Q24H [facility] Stop: 04/09/17 21:59 Last Admin: 04/07/17 19:02 Dose: 25 mls/hr Sodium Chloride (Normal Saline) 1,000 mls @ 125 mls/hr IV ASDIRECTED [facility] Influenza Virus Vaccine (Pharmacy To Dose - Influenza Vaccine) 1 each IM ONETIME ONE Stop: 04/06/17 22:07 Influenza Virus Vaccine (Fluzone Quad 5510-5114) 60 mcg IM .ONCE ONE Stop: 04/09/17 10:01 Iopamidol (Isovue-370 (76%)) 100 ml IV . DIRECTED [facility] Last Admin: 04/07/17 02:23 Dose: 100 ml Lorazepam (Ativan Oral Concentrate 1mg/0.5 Ml U/D) 0.5 - 1 mg PO Q2H PRN PRN Reason: Anxiety Last Admin: 04/08/17 16:17 Dose: 1 mg Lorazepam (Ativan Oral Concentrate 1mg/0.5 Ml U/D) 1 mg PO Q1H PRN PRN Reason: Anxiety Last Admin: 04/08/17 21:30 Dose: 1 mg Meperidine HCl (Demerol Corporate Technical Recruiter 300 Mg In 30 Ml) 300 mg IV ASDIRECTED PRN; Protocol PRN Reason: Pain Last Admin: 04/06/17 23:40 Dose: 300 mg Meperidine HCl (Demerol [employer] 300 Mg In 30 Ml) 0 mg IV ASDIRECTED PRN; Protocol PRN Reason: Pain Last Admin: 04/08/17 04:58 Dose: 300 mg Morphine Sulfate (Morphine 10 Mg/0.5 Ml Oral Syringe) 10 mg PO Q2H PRN PRN Reason: Pain Last Admin: 04/08/17 16:11 Dose: 10 mg Morphine Sulfate (Morphine 10 Mg/0.5 Ml Oral Syringe) 10 - 20 mg PO Q1H PRN PRN Reason: Pain Last Admin: 04/08/17 19:28 Dose: 20 mg Naloxone HCl (Narcan) 0.4 mg IVPUSH Q2M PRN PRN Reason: Respiratory Distress Ondansetron HCl (Zofran Odt) 4 mg PO Q4H PRN PRN Reason: Nausea/Vomiting Last Admin: 04/08/17 14:54 Dose: 4 mg Ondansetron HCl (Zofran) 4 mg IVPUSH Q4H PRN PRN Reason: Nausea/Vomiting Last Admin: 04/06/17 23:37 Dose: 4 mg - Exam Physical Findings Comments:: He had a respiratory arrest and pronounced . Cause of Cirrhosis of the liver. *Q Meaningful Use (DIS) - VTE *Q VTE Criteria *Q: - Stroke *Q Stroke Criteria *Q: - AMI *Q AMI Criteria *Q:
== END 2017-04-09 08:05 | disposition expired | DRG 433 ==
LOC: JP.ED 18:43 → MERGE 20:32 → JP.MS 20:32 → JP.ICU 04-07 00:45 → JP.2SS 04-08 16:25
PROVIDERS: ADMIT Internal Medicine; ATTEND Internal Medicine
PROC: 30233N1 Transfusion of Nonautologous Red Blood Cells into Peripheral Vein, Percutaneous Approach (ICD-10-PCS; 2017-04-06)
PROC: 0W9G3ZX Drainage of Peritoneal Cavity, Percutaneous Approach, Diagnostic (ICD-10-PCS; principal; 2017-04-07)
PROC: 30233N1 Transfusion of Nonautologous Red Blood Cells into Peripheral Vein, Percutaneous Approach (ICD-10-PCS; 2017-04-07)
DX: K70.31 Alcoholic cirrhosis of liver with ascites (principal); Z68.41 Body mass index [BMI] 40.0-44.9, adult; K42.9 Umbilical hernia without obstruction or gangrene; F10.10 Alcohol abuse, uncomplicated; D64.9 Anemia, unspecified; E66.8 Other obesity; R09.02 Hypoxemia; K70.40 Alcoholic hepatic failure without coma; Z66 Do not resuscitate; R85.5 Abnormal microbiological findings in specimens from digestive organs and abdominal cavity; R53.1 Weakness
CPT/HCPCS: 36415; 36430; 36600; 71020; 71275; 74020; 74177; 80053; 81001; 82140; 82248; 82270; 82378; 82550; 82553; 82607; 82746; 82803; 83550; 83690; 83735; 84443; 84484; 85025; 85045; 85610; 86850; 86900; 86901; 86920; 86922; 87040; 87070; 87077; 87086; 87186; 87205; 88112; 88305; 89050; 90471; 93005; 93010; 94762; 99283; 99284-25; A9270-GY; J1940; J1956; J2175; J2405; J7030; P9016; P9047; Q9967